=== PATIENT | female | born 1965 | race Caucasian/White ===

== ENCOUNTER 2024-01-27 06:23 | Day surgery (SDC) | payer BC, SELFPAY ==
[2024-01-20 08:05] VITALS: BMI 25.7
[2024-01-20 09:31] LABS: Blood Urea Nitrogen 22 mg/dl (7-17); Calcium 9.9 mg/dl (8.4-10.2); Carbon Dioxide 23 mmol/L (22-30); Chloride 105 mmol/L (98-107); Estimated Creatinine Clearance 80 ml/min; Glucose 104 mg/dl (70-99); Potassium 4.3 mmol/L (3.5-5.1); Sodium 136 mmol/L (135-145); eGFR > 60.00
[2024-01-27] VITALS (7 sets, daily range): BP systolic 83–115; BP diastolic 51–64; BMI 25.7
[2024-01-27] MEDS: NORMOSOL-R 1000 IV (10:16)
== END 2024-01-27 13:38 | disposition home or self-care (01) ==
LOC: SDS 06:23
PROVIDERS: ATTENDING PHYSICIAN Otolaryngology; FAMILY PHYSICIAN Family Medicine
DX: Q18.1 Preauricular sinus and cyst (principal); L73.9 Follicular disorder, unspecified
CPT/HCPCS: 69110; 12011; 11400; 88304; 36415; 80048; 93005

== ENCOUNTER → 2024-06-11 15:50 | Outpatient (REF) | payer BC, SELFPAY | LOC: HWRAD 15:50 | PROVIDERS: ATTENDING PHYSICIAN Chiropractor; FAMILY PHYSICIAN Family Medicine | DX: M54.2 Cervicalgia (principal); M54.6 Pain in thoracic spine; R07.82 Intercostal pain | CPT/HCPCS: 71110; 72050; 72072 ==

== ENCOUNTER → 2025-03-30 17:26 | Outpatient (REF) | payer BC, SELFPAY | LOC: RAD 17:26 | PROVIDERS: ATTENDING PHYSICIAN Student in an Organized Health Care Education/Training Program | DX: R10.31 Right lower quadrant pain (principal) | CPT/HCPCS: 71271; 74177; Q9967 ==

== ENCOUNTER → 2025-05-13 10:24 | Outpatient (REF) | payer BC, SELFPAY | LOC: HWRAD 10:24 | PROVIDERS: ATTENDING PHYSICIAN Student in an Organized Health Care Education/Training Program | DX: N83.202 Unspecified ovarian cyst, left side (principal); E03.9 Hypothyroidism, unspecified; E04.1 Nontoxic single thyroid nodule | CPT/HCPCS: 76536; 76830; 76856 ==

== ENCOUNTER → 2025-07-07 07:26 | Outpatient (REF) | payer BC, SELFPAY ==
[2025-07-07 07:51] VITALS: BP 127/71; BP_SYST 57
== END ==
LOC: RADI 07:26
PROVIDERS: ATTENDING PHYSICIAN Nurse Practitioner Family; FAMILY PHYSICIAN Student in an Organized Health Care Education/Training Program
DX: E04.1 Nontoxic single thyroid nodule (principal)
CPT/HCPCS: 10005; 88173